=== PATIENT | female | born 1975 | race Caucasian/White ===

== ENCOUNTER 2016-07-10 07:01 | Day surgery (SDC) | payer SELFPAY ==
[~2016-07-10 07:01] MED LIST: LIDOCAINE W/ SODIUM BICARB 0.5 ML SYR ONE; Lactated Ringers 1,000 ML PRIMARY IV ONE; ceFAZolin Inj 2gm (Premix) 50 ML IV ONE
[2016-07-10 07:40] VITALS: RESP 15
[2016-07-10] MEDS ORDERED: MIDAZOLAM 5 MG/1 ML ONE (07:53)
[2016-07-10] MEDS ORDERED: LIDOCAINE 2%/ EPI 1:200,000 - 20 ML VIAL ONE (07:53)
[2016-07-10] MEDS ORDERED: fentaNYL Inj 100 MCG/2 ML VIAL ONE (07:53)
[2016-07-10] MEDS ORDERED: BUPIVACAINE 0.5% W/EPI MPF -30 ML VIAL IV ONE (07:54)
[2016-07-10] MEDS ORDERED: LIDOCAINE W/ SODIUM BICARB 0.5 ML SYR ONE (07:54)
[2016-07-10] MEDS ORDERED: LIDOCAINE 2% 20 MG/ML - 20 ML VIAL ONE (08:36)
[2016-07-10] MEDS ORDERED: BUPivacaine Liposome/PF (Exparel) Inj 20ml vial INFIL ONE (09:09)
[2016-07-10] MEDS ORDERED: Lactated Ringers 1,000 ML PRIMARY IV ONE (09:13)
--- NOTE | 2016-07-10 10:26 | CRNA.PROCE ---
Nerve Block Documentation - - Safety Measures: Time Out Taken, Site Verified - - Type of Nerve Block Used: Right Popliteal Fossa Block Position for Nerve Block: Prone Moniters Used During Block: EKG, SPO2, NIBP Oxygen Sumpplented: Yes Sedation Used - Enter Amount in Comment Field: Midazolam (mg): Yes (2mg iv), Fentanyl (mcg): Yes (50mcg iv) Skin Prep Used: ChloroPrep Technique: Nerve Stimulator Nerve Block Needle Used: 80 mm ProBlk II Stimulation Hz: 1.0 Stimulation Staring mA: 1.4 Stimulation Ending mA: 0.5 Local Anesthetic - Enter Amt in Comment Field: 0.5 % Bupivicaine with Epinephrine 1:200,000 (mL): Yes (20ml), 2 % Xylocaine with Epinephrine 1:200, 000 (mL): Yes (20ml)
[2016-07-10] MEDS ORDERED: HYDROcodone-APAP 10 MG-325 MG TABLET PO PRN (11:59)
[2016-07-10] MEDS ORDERED: NORMAL SALINE 10 ML SYRINGE FLUSH IVP PRN (11:59)
--- NOTE | 2016-07-10 12:22 | GEN.OPNOTE ---
Operative Report Surgeon: Bimal Jackson DPM Anesthesia Type: Regional, Local (with post operative exparel), MAC Anesthesia Provider: Brayden Soriano CRNA Surgery Date: 07/10/16 Preoperative Diagnosis: 1. Right foot hallux valgus. 2. Right foot metatarsus primus elevatus. 3. Right foot bunion. Postoperative Diagnosis: 1. Right foot hallux valgus. 2. Right foot metatarsus primus elevatus. 3. Right foot bunion. Procedure: 1. Right foot lapidus / donald bunionectomy. Estimated Blood Loss (mL): 30 (a pneumatic cuff was used on the right ankle for 96 minutes, down for 40+ minutes and then up ffor 46 minutes.) Fluids: 2 g Ancef given preoperatively. 1700 mL lactated Ringer's. Complications: None Findings at Surgery: Elevated first ray, metatarsus primus elevatus. Also noted at the great toe was tracking dorsal laterally, while in weightbearing stance is positioned straight. Because of this the Donald osteotomy was placed dorsal medially. Indications for the Procedure: Right foot pain. Description of Procedure: The patient was brought to the operating room and placed in the supine position. They had already been given a popliteal block of the lower extremity , and MAC was continued. The right foot was prepped and draped in the usual sterile fashion. A timeout was performed. A preoperative C-arm radiograph was taken to help delineate the area of concern, the joints, and these were marked on the foot. The foot was then exsanguinated with an Esmarch bandage, after which a pneumatic cuff was inflated about the ankle to 250 mmHg pressure. A curvilinear incision was made over the dorsal lateral foot from the medial cuneiform down to the first metatarsophalangeal joint. This was deepened by sharp and blunt dissection taking care to retract neurovascular structures. Next attention was directed to the first metatarsal head and the prominent dorsal medial exostosis. Dissection was carried deep to the first interspace along the lateral aspect of the first metatarsophalangeal joint. A L capsulotomy was performed releasing the lateral sesamoidal ligament, and adductor tendons. This allowed the first metatarsal to slide towards the second metatarsal. The joint capsule was reflected from the medial aspect of the first metatarsal head, and the medial and dorsal-medial bone reduced. This was checked with the C-arm and final modifications made. The proximal incision was then deepened to the first metatarsal cuneiform joint , with the dissection taking place between the extensor hallucis longus tendon and the anterior tibialis insertion. The joint capsule was then carefully released medially, medial plantarly, dorsally, and dorsal laterally. It was noted that the base of the first metatarsal lateral condyle was prominent and of concern. Using a sagittal saw the cartilage and subchondral plate were cut from the base of the first metatarsal and from the medial cuneiform taking care to cut in line with the joint, which lay at 50 to a weightbearing surface, and then 2 feather a wedge so that the first metatarsal angle would decrease. This was done under C-arm guidance. The osseous ends of both sides were then feathered with a mallet and osteotome to encourage union. The superior edge of the medial cuneiform was also reduced as it had become prominent. The wound was copiously irrigated and then using a bone clamp the first metatarsal was clamped with the third metatarsal thus maintaining the correction. Next a lag screw was placed from the first metatarsal base dorsal laterally into the cuneiform plantar medially. This was done with a cannulated 3.538 mm [email or web address] [place] headed screw. Next a 0 Lapidus plate from [email or web address] was chosen, and fixated with a 3.5 14 and 12 mm locking screws proximally, followed by a 3.518 mm nonlocking screw in the compression slot, followed by a 3.520 mm and a 3.516 mm locking screws in the distal plate. Under C-arm the intermetatarsal angle head closed to approximately 0 which appeared to be satisfactory and was as far as the first metatarsal with transfer laterally. The wound was irrigated after which the proximal closure of the joint tissues and subcutaneous tissues over the plate was performed. The pneumatic cuff was then released from the left ankle having been up for 96 minutes total time. The wound was copiously irrigated, after which the met-cuneiform joint capsule was closed with 4-0 Vicryl. The remaining subcutaneous tissues were closed with 4-0 Vicryl. The first metatarsophalangeal joint still had excellent range of motion. With the cuff down the distal foot was evaluated again under C-arm and functionally. When the great toe was extended it would go dorso laterally To correct the distal articular set angle and Donald osteotomy was planned for the proximal phalanx and placed so the apex was plantar lateral. The incision was deepened on the medial aspect of the great toe to the bone of the proximal phalanx. A wedge osteotomy was performed including the lateral cortical hinge, and this was fixated under C-arm with a 10 mm 10 mm [employer] Nitinol bone staple from [employer]. The wounds irrigated and then subcutaneous tissues were closed with 4-0 Vicryl. The skin was then closed with 4-0 nylon in a running sub cuticular fashion. The wounds were reinforced with Mastisol and Steri-Strips. A dressing was applied consisting of Xeroform gauze, fluffs, 3 inch Kerlix, and three-inch Coban. The pneumatic cuff was then released from the right ankle for the second time after 46 minutes. Capillary return was noted to all toes. Patient was returned recovery and will be kept initially nonweightbearing. However she will still be encouraged to move the great toe is much they feel they would like to, and I also encouraged hip and knee flexion. Postoperative medications have already been written and picked up, and they have a knee scooter and crutches available as well. The first postoperative dressing change will be in 1 week.
--- NOTE | 2016-07-10 14:08 | DI ---
History: Recent right hallux valgus repair. Prior study: 04/30/16. Procedure: Three-view. Findings: The patient has had arthrodesis across the first TMT articulation, joining the first metata rsal to the medial cuneiform ossicle. This appears to satisfactory. Additionally, there is an osteoto my of the proximal phalanx with the medial fixation brads present. Alignment of the first MTP articulation is now straight. Impression: Satisfactory appearance of right hallux valgus repair. Details mentioned above. Good pres ervation of tarsal arch
[2016-07-10 14:45] VITALS: TEMP 98.5
== END 2016-07-10 13:19 | disposition home or self-care (01) ==
LOC: SDSC 07:01
PROVIDERS: ATTEND Podiatrist Foot & Ankle Surgery
DX: M79.671 Pain in right foot (principal); M20.11 Hallux valgus (acquired), right foot; M21.611 Bunion of right foot
CPT/HCPCS: 28299; 73630; 76000; 84703; C9290; J0690; J2704; J3010; S0020; J2001; J2250; J7120